=== PATIENT | male | born 1970 | race Caucasian/White ===

== ENCOUNTER → 2020-09-30 | Day surgery (SDC) | payer OTHER ==
[~2020-09-30] VITALS: Ht 170.2 cm; Wt 92.0 kg
[~2020-09-30] MED LIST: ACETAMINOPHEN 500 MG TABLET PO ONE; BUPIVACAINE MPF 0.25% 30 ML VIAL. ONE; BUPIVACAINE-EPI 0.25%-1:200000 MPF 30 ML VIAL. INJ ONE; CLINDAMYCIN 900MG PREMIX 50 ML IV PRN; DEXAMETHASONE SOD PHOS 4 MG/ML VIAL ONE; GLYCOPYRROLATE 1 MG/5 ML VIAL. ONE; HYDROmorphone 2 MG/ML VIAL IVP PRN; IV RINGERS,LACTATED 1000ML 1,000 ML IV SCH; LEVO137T3 PO; LIDOCAINE 2% PF 5 ML VIAL. ONE; MINERAL OIL for SURGERY 10 ML VIAL. MC ONE; MORPHINE SULFATE 2 MG/ML INJ. ONE; MULT-245 PO; NEOSTIGMINE METHYLSULFATE 5 MG/5 ML SYRINGE. ONE; ONDANSETRON PF 4 MG/2 ML VIAL. ONE; OXYC1TAB15 PO; PROCHLORPERAZINE 10 MG/2 ML VIAL. IVP PRN; PROPOFOL 10 MG/ML (20ML) VIAL. IV ONE; ROCURONIUM 50 MG/5 ML VIAL. ONE; TEST5GEL TP; fentaNYL PF VIAL 100 MCG/2 ML VIAL IVP PRN; fentaNYL PF VIAL 100 MCG/2 ML VIAL ONE; oxyCODONE/APAP 5/325 1 TAB TABLET ONE; oxyCODONE/APAP 5/325 1 TAB TABLET PO ONE
[2020-09-30 10:40] VITALS: BP 135/92
--- NOTE | 2020-09-30 12:40 | PDOC4 ---
Operative Note Operative Note Date: September 2309-23 at 1237 Preoperative diagnosis: Ventral hernia Postoperative diagnosis: Same Procedure: Robotic assisted laparoscopic ventral hernia repair with mesh Surgeon: Geoffrey Specimen: None Dictation: 49-year-old male with a ventral hernia and abdominal pain. Procedure of robotic assisted laparoscopic ventral hernia repair with mesh was explained to the patient detail risk benefits were also discussed including bleeding infection injury to intra-abdominal contents possible necessitating further open operations alternatives to this procedure also discussed with patient who seemed to understand and gave a verbal written consent to have the procedure performed. Patient was taken to the operating room placed in the supine position general anesthesia was initiated once patient was sleeping intubated his abdomen was prepped and draped usual sterile fashion using ChloraPrep. An area in the left upper quadrant was injected with quarter percent Marcaine with epinephrine incision was made 11 blade scalpel and a 5 mm Visiport was placed under direct visualization of the abdomen creating pneumoperitoneum once this complete 5 mm scope was placed within the abdomen and was inspected ventral hernia was noted. 8 mm ventral port was placed in the left midabdomen a millimeter da Shahla port was placed left lower abdomen and the 5 mm Visiport was changed out for 8 mm da Shahla port. The da Shahla robot is brought and docked all port sites surgeon went to the robotic console using grasper and Endo Drea scissors the hernia contents were reduced. The hernia was then closed with a running 2 OV lock nonabsorbable suture. Ventral light ST mesh was then placed over the hernia defect this was sewn into place with a running 2 OV lock absorbable suture. The preperitoneal fat was closed over the mesh with a running 2 OV lock absorbable suture. Sutures removed from the abdomen the da Shahla was undocked from all port sites all ports were removed the pneumoperitoneum was reduced all port sites were all closed with 4-0 subcuticular Monocryl Mastisol Steri-Strips and island dressings were applied. Patient was awakened and extubated in the operating room taken to recovery in stable condition all sponge instrument nee dle counts listed as correct estimated blood loss 5 mL BELLA HERRING MD Sep 30, 2020 12:40
--- NOTE | 2020-09-30 12:44 | DISCH ---
DISCHARGE INSTRUCTIONS Condition on Discharge Condition on Discharge: Stable Activity After Discharge Activity Instructions for Disc: Avoid exertion Other activity instructions: No lifting more than 20 pounds for 2 weeks Diet after Discharge Diet after Discharge: Regular Wound Incision Care Other wound/incision instructi: Samantha shower 24 hours Contacting the after DC Call your doctor for: If your condition worsens Follow-Up Follow up with: Dr. Herring in 2 weeks BELLA HERRING MD Sep 30, 2020 12:44
[2020-09-30] MEDS: fentaNYL PF VIAL 100 MCG/2 ML VIAL IVP PRN ×2 (12:57→13:02)
[2020-09-30] MEDS: MORPHINE SULFATE 2 MG/ML INJ. IVP PRN ×2 (13:21→13:32)
[2020-09-30 13:23] VITALS: BP 158/95
== END | disposition home or self-care (01) ==
LOC: SURG 09:54
PROVIDERS: ATTEND Surgery
DX: K43.9 Ventral hernia without obstruction or gangrene (principal); I10 Essential (primary) hypertension; M19.90 Unspecified osteoarthritis, unspecified site; E03.9 Hypothyroidism, unspecified; Z88.0 Allergy status to penicillin; Z79.899 Other long term (current) drug therapy; Z98.890 Other specified postprocedural states
CPT/HCPCS: 49652; A4364; A4930; A6219; C1781; J1100; J2270; J2405; J2704; J2710; J3010; J3490; S2900; A4657